=== PATIENT | female | born 1970 | race Caucasian/White ===

== ENCOUNTER 2019-09-15 16:22 | Outpatient (CLI) | payer OTHER, SELFPAY ==
[2019-09-15 16:54] LABS: Add Urine Microscopic? NO; Appearance Urine Clear (Clear); Bilirubin Urine Negative (Negative); Blood Urine Negative (Negative); Color Urine Colorless (Yellow); Glucose Urine UA Negative (Negative); Ketones Urine Negative (Negative); Leukocyte Esterase Ur Negative LEU/UL (Negative); Nitrate Urine Negative (Negative); Protein Urine Negative (Negative); Specific Grav Ur 1.006 (1.001-1.035); Urobilinogen Urine Negative mg/dL (<2.0)
== END 2019-09-15 16:23 | disposition home or self-care (01) ==
PROVIDERS: PCP Physician Assistant; Referring Provider Physician Assistant; Visit Provider Internal Medicine Gastroenterology
DX: R10.33 Periumbilical pain (principal)
CPT/HCPCS: 81003

== ENCOUNTER → 2020-11-26 15:01 | Outpatient (CLI) | payer OTHER, SELFPAY ==
--- NOTE | ~2020-11-26 | MM_ITS ---
EXAMINATION: MM screening nicholas BI w jose luis HISTORY: Screening TECHNIQUE: Craniocaudal and mediolateral oblique 3-D tomosynthesis images were obtained and synthetic 2-D images were generated. CAD analysis was submitted and interpreted. COMPARISON: Comparison to multiple prior studies sequentially, with oldest reviewed study dated 12/2012. BREAST PARENCHYMAL COMPOSITION: Breast composed of scattered areas of fibroglandular density. FINDINGS: The left breast is stable without evidence for malignancy. There is a new focal asymmetry s ubareolar location of the right breast on MLO view. IMPRESSION: 1. New focal right breast asymmetry. 2. Additional mammographic views and possible breast ultrasound are recommended. BI-RADS Category 0: Incomplete: Needs additional imaging evaluation. Reviewed, dictated and finalized at location A. IMPRESSION: 1. New focal right breast asymmetry. 2. Additional mammographic views and possible breast ultrasound are recommended . BI-RADS Category 0: Incomplete: Needs additional imaging evaluation.
== END ==
PROVIDERS: Visit Provider Obstetrics & Gynecology
DX: Z12.31 Encounter for screening mammogram for malignant neoplasm of breast (principal); R92.8 Other abnormal and inconclusive findings on diagnostic imaging of breast
CPT/HCPCS: 77063; 77067

== ENCOUNTER → 2021-02-08 07:56 | Outpatient (CLI) | payer OTHER, SELFPAY ==
--- NOTE | ~2021-02-08 | MM_ITS ---
Corrected Report Added US order to report. -BJO 02/10/2021 EXAMINATION: MM diagnostic nicholas RT w jose luis, US breast RT limited HISTORY: Right breast asymmetry on screening mammogram TECHNIQUE: Additional 3-D tomosynthesis images of the right breast were performed and synthetic 2-D images were generated. CAD analysis was submitted and interpreted. High resolution limited right breast ultrasound was performed. COMPARISON: 11/26/2020, 12/16/2018, 08/30/2016 BREAST PARENCHYMAL COMPOSITION: There are scattered areas of fibroglandular density. FINDINGS: MAMMOGRAPHIC FINDINGS: There is a return to baseline fibroglandular appearance with spot compression of the right breast in the area questioned on screening mammogram. ULTRASOUND: There is a 3 mm round, circumscribed, hypoechoic mass with posterior acoustic shadowing and no internal vascularity at the 11:00 location 2 cm from the nipple. IMPRESSION: 1. Indeterminate sonographically detected right breast mass at the 11:00 location 2 cm from the nipple. 2. Ultrasound-guided biopsy is recommended. BI-RADS category 4, suspicious findings. Reviewed, dictated and finalized at location A. MTDD IMPRESSION: 1. Indeterminate sonographically detected right breast mass at the 11:00 locati on 2 cm from the nipple. 2. Ultrasound-guided biopsy is recommended. BI-RADS category 4, suspicious findings.
== END ==
PROVIDERS: PCP Physician Assistant; Visit Provider Obstetrics & Gynecology
DX: N63.11 Unspecified lump in the right breast, upper outer quadrant (principal)
CPT/HCPCS: 76642; 77061; 77065; G0279

== ENCOUNTER 2021-06-16 08:00 | Outpatient (RCR) | payer OTHER, SELFPAY ==
--- NOTE | 2021-03-29 11:49 | PTOPEVAL ---
PHYSICAL THERAPY EVALUATION AND PLAN OF TREATMENT 03-29-21 Thank you for referring Lolly Eid to [facility]. She is scheduled to be seen for therapy? 2 x/week for 5 weeks. Please review, sign, date and return this plan of care REENA. I agree with and certify that the following plan of care is medically necessary. Referring Physician Date Attending Provider: Diego Meng MD *PT Outpatient Evaluation Document 03/29/21 10:25 FRANCES (Rec: 03/29/21 11:03 FRANCES [id number]) Outpatient Past Medical History Past Medical History Source of Past Medical History Patient Neurological History Hx Neurological Disorders No Significant History Cardiovascular History Hx Cardiac Disorders No Significant History Respiratory History Hx Respiratory Disorders No Significant History Gastrointestinal History Hx Cholecystectomy Yes Hx Other Gastrointestinal Disorders Yes: stents in bile duct; Endocrine History Hx Hypothyroidism Yes: meds Reproductive History Hx Other Reproductive Disorders Yes: ablation of uterus Psychosocial History Hx Anxiety Yes: meds Other History Hx Other Surgeries Yes: B breast reduction Evaluation Information Problem Diagnosis abdominal lymphedema s/p abdominoplasty Onset January 05, 2021 Prior Level of Function Activity Level (Last 3 Months) Occupation office work for [employer] Hand Dominance Right Activity of Daily Living Ability Independent Indoor/Home Mobility Independent Community Mobility Independent Stairs Ability Independent Functional Cognition (Planning, Shopping Independent , Taking Medications) Cooking Yes Cleaning Yes Laundry Yes Shopping Yes Driving Yes Medications Home Meds (Include: OTC, RX, Vitamins, thyroid and anxiety meds Herbals, Dose, Route,and Frequency) Query Text:Home Med Entries Will No Longer Recall From Past Visits. Home Meds Must Be Re-entered With Each Visit. Comments Additional Prior Level of Function has returned to doing all of Comments her work and home tasks, except heavy lifting, 20# limit from ; Pain Assessment Timing of Pain Assessment Timing of Pain Assessment Assessment Pain Scale Pain Scale Used Numeric (1 - 10) Self Report Pain Assessment Bilateral Abdomen Reported Pain Level 0 Pain Description Tightness Pain Frequency Chronic,Continuous Other Pain Description uncomfortable when lie on
--- NOTE | 2021-04-28 08:51 | PCPTNOTE ---
pt called and canceled today' appt;
--- NOTE | 2021-05-02 14:50 | PTOPEVAL ---
PHYSICAL THERAPY RE-EVALUATION AND UPDATED PLAN OF CARE 05-02-21 Refer to the clinical summary below, for her status today, compared to the initial evaluation. She has made improvements and the goals were partially met. Continue PT 2x/week for 6 weeks. When she has additional surgery, will require a release to return to treatment. Thank you for referring Lolly Eid to [facility].? Please review, sign, date and return this updated plan of care REENA. I agree with and certify that the following plan of care is medically necessary. Referring Physician Date Attending Provider: Diego Meng MD Document 05/02/21 13:55 FRANCES (Rec: 05/02/21 14:50 FRANCES [id number]) Assessment Status Re-evaluation Subjective Information Lolly reports: saw dr and Query Text:As Reported By Patient/ plans for a revision- Family liposuction to R and L sides and above belly button; date is not scheduled yet; stomach is not as tight and hard; the size of the sides of hips varies; using [employer] shorts -- try to wear most of the days and sleep in also; have been doing massage; still have numbness over the scar; last week, had more swelling in lower abdomen to pelvic bone; got a nigerian ball and doing stretching with it now; Pain Assessment Timing of Pain Assessment Timing of Pain Assessment Assessment Pain Scale Pain Scale Used Numeric (1 - 10) Self Report Pain Assessment Bilateral Abdomen Reported Pain Level 0 Pain Description Sharp Pain Frequency Chronic,Intermittent Other Pain Description pulling over R and L mid abdomen; Lowest Pain Intensity 0 Greatest Pain Intensity 5 Other Pain Aggravating Factors more activity Pain Score Pain Score 0: Self Report Interventions Used Interventions Used By Clinicians Education Pain Relief Interventions Used By Sitting Patient Other Alleviating Interventions deep breathing; Lymphedema Evaluation Skin Inspection Skin Inspection Comment in standing: visible edema/buldging over R and L lateral hips/lower trunk : measurement vertical along buldge: from crease superior to inferios aspects R: 15 cm/ L 11 cm;
--- NOTE | 2021-06-16 08:53 | PTOPEVAL ---
PHYSICAL THERAPY DISCHARGE 06-16-21 Refer to the clinical summary below, for her status today, compared to the last reevaluation. The goals were partially achieved. Discharge PT at this time. She is to continue with her self MLD, home exercises and wearing compression garment. Thank you for referring Lolly Eid to [facility].? Please review, sign, date and return this Discharge REENA. I agree with and certify that the following plan of care is medically necessary. Referring Physician Date Attending Provider: Diego Meng MD Assessment Status Discharge Subjective Information Lolly reports: additional surgery is planned for - revision liposuction; she is doing her self massage without any problems; wearing solidea compression bike shorts; doing ball exercises; is more careful with posture when working on computer; also got a treadmill for fitness; agree to discharge from PT for now and to return after procedure; Pain Assessment Timing of Pain Assessment Timing of Pain Assessment Assessment Pain Scale Pain Scale Used Numeric (1 - 10) Self Report Pain Assessment Bilateral Abdomen Reported Pain Level 0 Pain Description Tightness Pain Frequency Chronic,Intermittent Other Pain Description tightness over R side lower abdomen Pain Score Pain Score 0: Self Report Interventions Used Interventions Used By Clinicians Education,Exercise Pain Relief Interventions Used By Position Change Patient Lymphedema Evaluation Skin Inspection Skin Inspection Comment circumferential measurements in standing: - smallest waist 74 cm -at umbilicus 84 cm - along scar line 95 cm visual inspection in standing: R and L lateral hips with bulging of tissue, soft tissue , without fibrosis, distal to incisions R side larger than L; in supine: - B shoulder flexion/ pt reports little stretch and tightness over mid abdomen - pa
== END 2021-06-16 16:53 | disposition home or self-care (01) ==
LOC: ANHPT 08:00
PROVIDERS: PCP Physician Assistant
DX: I89.0 Lymphedema, not elsewhere classified (principal)
CPT/HCPCS: 97140; 97161

== ENCOUNTER 2022-04-10 09:48 | Day surgery (SDC) | payer OTHER, SELFPAY ==
[2022-03-23 13:38] VITALS: BMI 23.4
--- NOTE | 2022-04-07 14:55 | PM.HPGS ---
History of Present Illness History of Present Illness Consent: Risks, benefits, and alternatives have been discussed and questions answered. Patient agrees to proceed with procedure. Chief complaint: Neoplasm Screening Narrative: Lolly Eid is a 52 year old female Referred for colon cancer screening. Review of Systems Review of Systems: All systems reviewed & are unremarkable except as noted in HPI and below PMFSH Past Medical History Medical History Anxiety Depression History of trichomoniasis (~04/2021) Screening mammogram for breast cancer Surgical History Surgical History H/O breast surgery reduction History of endometrial ablation (~07/2010) History of gastrointestinal surgery (~05/2007) enlarged bile duct History of hysteroscopy (~07/2010) History of tubal ligation (~09/2006) Hx of cholecystectomy (~2006) Status post gastrointestinal surgery (~05/2010) stints inserted/ removed -- d/t enlarged bile duct Family History Family History Grandparent Cerebrovascular accident Hypertension Heart disease Other Ovarian malignancy Breast cancer Social History Social History Smoking status: Never smoker Alcohol intake: current Alcohol use details: occasionally Substance use: never Substance use type: does not use Living arrangements: with family Additional occupation/education comments: [employer] Gender identity (if verbalized by the patient): Female Sexual Orientation (if Verbalized by the Patient): Straight or Heterosexual Spiritual care concerns: No Meds Home Medications and Allergies Home Medications Medication Instructions Recorded Confirmed Type citalopram 20 mg tablet 20 mg PO DAILY 05/24/21 04/10/22 History levothyroxine 50 mcg capsule 50 mcg PO DAILY 05/24/21 04/10/22 History Allergies Allergy/AdvReac Type Severity Reaction Status Date / Time codeine AdvReac Unknown Nausea Verified 04/10/22 10:11 Exam Const: General: alert Orientation/consciousness: patient oriented x3 Resp: Auscultation: clear to auscultation bilaterally Cardio: Rhythm: regular rhythm GI: GI Palp: Yes Soft to palpation and No Tenderness to palpation present (GI) Neuro: General: patient oriented x3 Assessment and Plan Assessment and plan (1) Colon cancer screening: Code(s): Z12.11 - Encounter for screening for malignant neoplasm of colon Status: Acute Assessment and Plan: Colonoscopy with possible biopsy or polypectomy or cautery or injection of substances.
--- NOTE | 2022-04-10 07:05 | P.PNAN_ITS ---
Anes - Initial Pre Proc Eval Procedure: Operation Date: 04/10/22 11:45 Proposed Procedures p Screening Colonoscopy - Delbert Elizabeth MD Date/Time: 04/10/22 07:05 Surgeon: Delbert Elizabeth MD Pre Op Diagnosis: Neoplasm Screening Patient Data Age: 52 Gender: F Height: 1.65 m Weight: 64 kg Allergies Allergy/AdvReac Type Severity Reaction Status Date / Time codeine AdvReac Unknown Nausea Verified 04/10/22 10:11 Home Medications Medication Instructions Recorded Confirmed Type citalopram 20 mg tablet 20 mg PO DAILY 05/24/21 04/10/22 History levothyroxine 50 mcg capsule 50 mcg PO DAILY 05/24/21 04/10/22 History Patient hx anesthesia problems: none Family hx anesthesia problems: none Results Review: All pre-operative results and documents have been reviewed as part of the pre- operative evaluation. [facility] Past Medical History Medical History Anxiety Depression History of trichomoniasis (~04/2021) Screening mammogram for breast cancer Surgical History Surgical History H/O breast surgery reduction History of endometrial ablation (~07/2010) History of gastrointestinal surgery (~05/2007) enlarged bile duct History of hysteroscopy (~07/2010) History of tubal ligation (~09/2006) Hx of cholecystectomy (~2006) Status post gastrointestinal surgery (~05/2010) stints inserted/ removed -- d/t enlarged bile duct Family History Family History Grandparent Cerebrovascular accident Hypertension Heart disease Other Ovarian malignancy Breast cancer Social History Social History Smoking status: Never smoker Alcohol intake: current Alcohol use details: occasionally Substance use: never Substance use type: does not use Living arrangements: with family Additional occupation/education comments: [employer] Gender identity (if verbalized by the patient): Female Sexual Orientation (if Verbalized by the Patient): Straight or Heterosexual Spiritual care concerns: No Anes - Eval Final PreProcedure Day of Procedure 04/10/22 07:05 Patient weight: normal Heart: regular rate and rhythm Lungs: clear to auscultation and normal air movement Airway: Mallampati scale class II Neurological: alert and oriented Last oral intake: >/= 8 hours ASA classification: II Emergent: no Anesthetic plan: proceed Anesthesia type and monitoring: general GIVS and standard monitoring Results Review: All pre-operative results and documents have been reviewed as part of the pre- operative evaluation. Informed Consent: The patient's anesthetic plan and its attendant risks and benefits were discussed with the patient/family/POA. Questions were solicited and answers provided to the satisfaction of the patient/family/POA.
[2022-04-10 10:08] VITALS: BP 116/59; PULSE 63; RESP 20; TEMP 36.7; O2SAT 100
[2022-04-10] MEDS: LACTATED RINGERS 1,000 ML 150 ML IV CONT (10:28)
[2022-04-10 11:04] VITALS: BP 88/58; PULSE 58; RESP 18; O2SAT 100
[2022-04-10 11:14] VITALS: BP 88/46; PULSE 62; RESP 20; O2SAT 100
[2022-04-10 11:24] VITALS: BP 99/62; PULSE 53; RESP 20; O2SAT 100
--- NOTE | 2022-04-10 11:41 | WPDANESPN ---
Anes - Prog Note Post-Op Date/Time: 04/10/22 11:41 Cardiovascular status: normal Respiratory status: normal Airway patency: baseline Mental status: baseline Post-Op hydration status: normal Vital Signs: Last Vital Signs Temp 36.7 C 04/10/22 10:08 Pulse 53 L 04/10/22 11:24 Resp 20 04/10/22 11:24 BP 99/62 L 04/10/22 11:24 Pulse Ox 100 04/10/22 11:24 O2 Del Method Room Air 04/10/22 11:24 Pain Score (VAS): 0 Post-procedural complaints: none Patient Feedback: Patient satisfied with anesthetic care. Other Findings: Patient vital signs back to baseline. Patient denies nausea and vomiting. Patient's pain under control. Patient OK for discharge.
== END 2022-04-10 11:34 | disposition home or self-care (01) ==
PROVIDERS: PCP Physician Assistant; Visit Provider Internal Medicine Gastroenterology
PROC: 0DJD8ZZ Inspection of Lower Intestinal Tract, Via Natural or Artificial Opening Endoscopic (ICD-10-PCS; CPT 45378; principal; 2022-04-10 11:45)
DX: Z12.11 Encounter for screening for malignant neoplasm of colon (principal)
CPT/HCPCS: 45378

== ENCOUNTER → 2022-12-29 10:55 | Outpatient (CLI) | payer OTHER, SELFPAY ==
--- NOTE | ~2022-12-29 | MM_ITS ---
EXAMINATION: MM screening [facility] BI w jose luis HISTORY: Screening mammogram TECHNIQUE: Craniocaudal and mediolateral oblique 3-D tomosynthesis images were obtained and synthetic 2-D images were generated. CAD analysis was submitted and interpreted. COMPARISON: 02/08/2021, 11/26/2020, 12/16/2018 BREAST PARENCHYMAL COMPOSITION: There are scattered areas of fibroglandular density. FINDINGS: RIGHT BREAST: No suspicious mass, calcification, or architectural distortion are identified to sugges t malignancy. There has been no suspicious interval change. LEFT BREAST: An asymmetry is present in the posterior third of the breast just above the nipple axis on the mediolateral oblique view. IMPRESSION: 1. Left breast asymmetry. 2. Additional mammographic views and possible breast ultrasound are recommended. BI-RADS Category 0: Incomplete: Needs additional imaging evaluation. Reviewed, dictated and finalized at location A. IMPRESSION: 1. Left breast asymmetry. 2. Additional mammographic views and possible breast ultrasound are recommended . BI-RADS Category 0: Incomplete: Needs additional imaging evaluation.
== END ==
PROVIDERS: PCP Obstetrics & Gynecology; Visit Provider Obstetrics & Gynecology
DX: Z12.31 Encounter for screening mammogram for malignant neoplasm of breast (principal); R92.8 Other abnormal and inconclusive findings on diagnostic imaging of breast
CPT/HCPCS: 77063; 77067

== ENCOUNTER → 2023-01-24 09:52 | Outpatient (CLI) | payer OTHER, SELFPAY ==
--- NOTE | ~2023-01-24 | MMUS_ITS ---
EXAMINATION: MM diagnostic nicholas LT w jose luis, US breast LT limited HISTORY: Follow-up left breast mass TECHNIQUE: Additional 3-D tomosynthesis images of the left breast were performed and synthetic 2-D im ages were generated. CAD analysis was submitted and interpreted. High resolution Limited left breast ultrasound was performed. COMPARISON: 12/29/2022 BREAST PARENCHYMAL COMPOSITION: Breast composed of scattered areas of fibroglandular density FINDINGS: MAMMOGRAPHIC FINDINGS: There is a persistent slightly irregular shaped mass upper outer quadrant of the left breast posterio rly. No suspicious calcifications or architectural distortion. ULTRASOUND: Limited left breast ultrasound: At 3:00, 7 cm from the nipple, there is a 4 mm cyst corresponding to the mammographic finding. The margins are slightly irregular, although this may be attributable to th e small size. There is a second elongated 6 mm cyst at this location. IMPRESSION: 1. Probable benign findings of the left breast at 3:00, 7 cm from the nipple. 2. Recommend 6 month follow-up diagnostic left mammogram and ultrasound BI-RADS category 3, probably benign findings. Reviewed, dictated and finalized at location A. IMPRESSION: 1. Probable benign findings of the left breast at 3:00, 7 cm from the nipple. 2. Recommend 6 month follow-up diagnostic left mammogram and ultrasound BI-RADS category 3, probably benign findings.
== END ==
PROVIDERS: PCP Obstetrics & Gynecology; Visit Provider Obstetrics & Gynecology
DX: N64.89 Other specified disorders of breast (principal); R92.8 Other abnormal and inconclusive findings on diagnostic imaging of breast
CPT/HCPCS: 76642; 77061; 77065; G0279

== ENCOUNTER 2023-12-31 10:34 | Outpatient (CLI) | payer OTHER, SELFPAY ==
--- NOTE | ~2023-12-31 | MM_ITS ---
EXAMINATION: MM screening nicholas BI w jose luis HISTORY: Screening TECHNIQUE: Craniocaudal and mediolateral oblique 3-D tomosynthesis images were obtained and synthetic 2-D images were generated. CAD analysis was submitted and interpreted. COMPARISON: Comparison to multiple prior studies sequentially, with oldest reviewed study dated 08/30. BREAST PARENCHYMAL COMPOSITION: Not dense: There are scattered areas of fibroglandular density. FINDINGS: There is no evidence of suspicious mass, calcification, or architectural distortion to sugg est malignancy in either breast. There has been no suspicious interval change. IMPRESSION: 1. No mammographic evidence of malignancy. 2. Recommend routine screening mammography in one year. BI-RADS Category 1: Negative Reviewed, dictated and finalized at location B.
== END 2023-12-31 10:35 ==
PROVIDERS: PCP Obstetrics & Gynecology; Visit Provider Obstetrics & Gynecology
DX: Z12.31 Encounter for screening mammogram for malignant neoplasm of breast (principal)
CPT/HCPCS: 77063; 77067

== ENCOUNTER 2025-01-02 15:57 | Outpatient (CLI) | payer OTHER, SELFPAY ==
--- NOTE | ~2025-01-02 | MM_ITS ---
EXAMINATION: MM screening [facility] BI w jose luis HISTORY: Screening TECHNIQUE: Craniocaudal and mediolateral oblique 3-D tomosynthesis images were obtained and synthetic 2-D images were generated. CAD analysis was submitted and interpreted. COMPARISON: Mammograms from December 31, 2023,, 12/29/2022 and 11/26/2020 BREAST PARENCHYMAL COMPOSITION: There are scattered areas of fibroglandular density. FINDINGS: There is no evidence of suspicious mass, calcification, or architectural distortion to suggest malignancy. There has been no suspicious interval change. IMPRESSION: 1. No mammographic evidence of malignancy. Recommend routine screening mammography in one year. BI-RADS Category 2: Benign finding(s) Reviewed, dictated and finalized at location Q. IMPRESSION: 1. No mammographic evidence of malignancy. Recommend routine screening mammogra phy in one year. BI-RADS Category 2: Benign finding(s)
== END 2025-01-02 15:58 | disposition home or self-care (01) ==
LOC: MICIMG 15:58
PROVIDERS: PCP Obstetrics & Gynecology; Visit Provider Obstetrics & Gynecology
DX: Z12.31 Encounter for screening mammogram for malignant neoplasm of breast (principal)
CPT/HCPCS: 77063; 77067